=== PATIENT | female | born 2000 | race African-American/Black ===

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

== ENCOUNTER 2022-03-24 11:20 | Emergency (ER) | payer OTHER ==
[2022-03-24 11:24] VITALS: BP 143/92; PULSE 109; RESP 18; TEMP 99.5; BMI 36.6
[2022-03-24] MEDS ORDERED: ACETAMINOPHEN 500 MG TABLET (FP) PO ONE (12:00)
[2022-03-24] MEDS ORDERED: ACETAMINOPHEN 500 MG TABLET (FP) ONE (12:10)
== END 2022-03-24 14:31 | disposition home or self-care (01) ==
LOC: JER 11:20
DX: J06.9 Acute upper respiratory infection, unspecified (principal)
CPT/HCPCS: 0241U-QW; 71046-TC-FY; 99284-25

== ENCOUNTER 2023-05-19 13:57 | Emergency (ER) | payer OTHER ==
[2023-05-19] MEDS ORDERED: ACETAMINOPHEN INJECTION 100 ML IVPB ONE (15:08)
[2023-05-19 15:39] LABS: BASO % 0.8 % (0-2.0); EOS % 1.1 % (0-4.5); HEMATOCRIT 41.9 % (32.4-45.2); HEMOGLOBIN 13.1 GM/dL (10.7-15.3); MCH 27.5 pg (25.7-33.7); MCHC 31.3 g/dl (32.0-36.0); MEAN PLT VOLUME 9.5 fl (7.5-11.1); MONO % 5.9 % (3.8-10.2); NEUT % 68.2 % (42.8-82.8); PLATELET COUNT 435 10^3/uL (134-434); RBC 4.76 M/mm3 (3.60-5.2); RDW 12.9 % (11.6-15.6); WHITE BLOOD COUNT 12.1 K/mm3 (4.0-10.0)
[2023-05-19 15:46] LABS: INR 1.04 (0.83-1.09); PROTHROMBIN TIME (PATIENT) 12.1 SEC (9.7-13.0)
[2023-05-19 15:49] LABS: ACTIVATED PTT 33.4 SECONDS (25.2-36.5)
[2023-05-19] MEDS: ACETAMINOPHEN 1000 MG/100 ML BAG IVPB ONE (15:51)
[2023-05-19] MEDS: SODIUM CHLORIDE 0.9% 500 ML INFUS.BAG IV ONE (15:51)
[2023-05-19 15:57] LABS: POTASSIUM 4.7 mmol/L (3.5-5.1)
[2023-05-19 15:59] LABS: CALCIUM 9.7 mg/dL (8.5-10.1)
[2023-05-19 16:01] LABS: ALBUMIN 3.7 g/dl (3.4-5.0); BLOOD UREA NITROGEN 13.6 mg/dL (7-18)
[2023-05-19 16:03] LABS: CREATININE 0.7 mg/dL (0.55-1.3)
[2023-05-19 16:04] LABS: BILIRUBIN,TOTAL 0.3 mg/dL (0.2-1); TOT PROT 7.8 g/dl (6.4-8.2)
== END 2023-05-19 17:00 | disposition home or self-care (01) ==
LOC: JER 13:57
PROC: 3E033NZ Introduction of Analgesics, Hypnotics, Sedatives into Peripheral Vein, Percutaneous Approach (ICD-10-PCS; principal; 2023-05-19)
DX: R06.02 Shortness of breath (principal); R51.9 Headache, unspecified; R07.89 Other chest pain; Z20.822 Contact with and (suspected) exposure to COVID-19
CPT/HCPCS: 0241U-QW; 36415; 71045-TC-FY; 80053; 82962; 84484; 84703; 85025; 85610; 85730; 93005; 93010; 99285-25; J0131